=== PATIENT | female | born 1965 | race Caucasian/White ===

== ENCOUNTER 2018-08-11 16:49 | Emergency (ER) | payer OTHER ==
[2018-08-11 17:12] VITALS: BP 175/83
--- NOTE | 2018-08-11 17:44 | PHYS DOC ---
Past History Past Medical History: Diabetes, High Cholesterol, Heart Disease, Hypertension Past Surgical History: Other Alcohol Use: Occasionally Drug Use: None Adult General Chief Complaint Chief Complaint: MECHANICAL FALL HPI HPI 52-year-old female presents after fall yesterday. Patient was actually yesterday when she tripped over a concrete curb. She landed on the concrete. She hit her face, both hands, and both knees. She did not want to come the hospital yesterday. She had a very difficult time sleeping last night. Today her nose, teeth, and right knee hurt the most. She is able to walk. Her front 2 upper teeth are false caps over implants. She denies that they feel loose. She denies losing consciousness. Review of Systems Review of Systems Constitutional: Denies fever or chills [] Eyes: Denies change in visual acuity, redness, or eye pain [] HENT: Denies nasal congestion or sore throat [] Respiratory: Denies cough or shortness of breath [] Cardiovascular: No additional information not addressed in HPI [] GI: Denies abdominal pain, nausea, vomiting, bloody stools or diarrhea [] : Denies dysuria or hematuria [] Musculoskeletal: Facial pain, bilateral hand pain, bilateral knee pain[] Integument: Denies rash or skin lesions [] Neurologic: Denies headache, focal weakness or sensory changes [] Endocrine: Denies polyuria or polydipsia [] All other systems were reviewed and found to be within normal limits, except as documented in this note. Allergies Allergies Allergies Coded Allergies Type Severity Reaction Last Updated Verified iodine Allergy Unknown 08/11/18 Yes metformin Allergy Unknown 08/11/18 Yes Physical Exam Physical Exam Constitutional: Well developed, well nourished, no acute distress, non-toxic appearance. [] HENT: Normocephalic, bilateral external ears normal, oropharynx moist, no oral exudates, nose with abrasions and ecchymosis[] Eyes: PERRLA, EOMI, conjunctiva normal, medial periorbital ecchymosis with minimal swelling[] Neck: Normal range of motion, no tenderness, supple, no stridor. [] Cardiovascular:Heart rate regular rhythm, no murmur [] Lungs & Thorax: Bilateral breath sounds clear to auscultation [] Abdomen: Bowel sounds normal, soft, no tenderness, no masses, no pulsatile masses. [] Skin: Warm, dry, no erythema, no rash. [] Back: No tenderness, no CVA tenderness. [] Extremities: Ecchymosis over bilateral knees, right posterior hand. Tenderness over right knee. Tenderness over right dorsolateral hand[] Neurologic: Alert and oriented X 3, normal motor function, normal sensory function, no focal deficits noted. [] Psychologic: Affect normal, judgement normal, mood normal. [] Current Patient Data Vital Signs Vital Signs Date Time Temp Pulse Resp B/P (MAP) Pulse Ox O2 Delivery O2 Flow Rate FiO2 08/11/18 17:12 98.3 79 20 100 Room Air EKG EKG [] Radiology/Procedures Radiology/Procedures Preliminary read: Head and maxillofacial CT are unremarkable for intracranial bleed or fracture. Plain films of the hand and knee are negative for fracture.[] Impressions: CT HEAD AND MAXILLOFACIAL WO Date: 08/11/2018 5:53 PM Clinical Indication: fell headache,dizziness, facial pain Comparison: None. Technique: 5 mm axial tomographic images were obtained of the head without contrast. These were viewed on brain and bone windows. CT HEAD FINDINGS: The brain parenchyma is normal in attenuation. No intra- or extra-axial mass or fluid collection. No acute hemorrhage. The ventricles are normal in size, shape, and morphology. The cai-white matter junction is normal. The basilar cisterns are patent. The paranasal sinuses are clear. The orbits are normal. The globes are intact. The mastoid air cells are clear. No aggressive osseous lesion or fracture. CT HEAD IMPRESSION: No acute intracranial process. CT MAXILLOFACIAL WITHOUT CONTRAST History: fell headache,dizziness, facial pain Technique: Axial helical images of the face were obtained without contrast. Axial and coronal reconstruction was performed. Findings: There is no acute facial bone fracture. The paranasal sinuses are clear. The orbits are normal. The globes are intact. The nasal septum is mostly midline. The ostiomeatal complexes are narrow but patent. CT FACE IMPRESSION: No acute facial bone fracture. PQRS Compliance Statement: One or more of the following individualized dose reduction techniques were utilized for this examination: 1. Automated exposure control 2. Adjustment of the mA and/or kV according to patient size 3. Use of iterative reconstruction technique Electronically signed by: Stephen Ann MD (08/11/2018 6:34 PM) [facility] [place] DICTATED AND SIGNED BY: STEPHEN ANN MD DATE: 08/11/181826 CC: BEN WARD DO; CHAY VILLALPANDO MD ~ Course & Med Decision Making Course & Med Decision Making Pertinent Labs and Imaging studies reviewed. (See chart for details) The patient's CT scan and x-rays are negative for fracture. She does has multiple contusions. We'll discharge her with [place] 5/325 for pain. She is stable for discharge at this time. [] Dragon Disclaimer Dragon Disclaimer This electronic medical record was generated, in whole or in part, using a voice recognition dictation system. Departure Departure: Referrals: CHAY VILLALPANDO MD (PCP) Scripts Hydrocodone Bit/Acetaminophen (NORCO 5-325 TABLET) 1 Each Tablet 1 TAB PO PRN Q6HRS PRN for PAIN, #10 TAB 0 Refills Prov: BEN WARD DO 08/11/18 BEN WARD DO Aug 11, 2018 17:44
--- NOTE | 2018-08-11 18:37 | RAD ---
CT HEAD AND MAXILLOFACIAL WO Date: 08/11/2018 5:53 PM Clinical Indication: fell headache,dizziness, facial pain Comparison: None. Technique: 5 mm axial tomographic images were obtained of the head without contrast. These were viewed on brain and bone windows. CT HEAD FINDINGS: The brain parenchyma is normal in attenuation. No intra- or extra-axial mass or fluid collection. No acute hemorrhage. The ventricles are normal in size, shape, and morphology. The cai-white matter junction is normal. The basilar cisterns are patent. The paranasal sinuses are clear. The orbits are normal. The globes are intact. The mastoid air cells are clear. No aggressive osseous lesion or fracture. CT HEAD IMPRESSION: No acute intracranial process. CT MAXILLOFACIAL WITHOUT CONTRAST History: fell headache,dizziness, facial pain Technique: Axial helical images of the face were obtained without contrast. Axial and coronal reconstruction was performed. Findings: There is no acute facial bone fracture. The paranasal sinuses are clear. The orbits are normal. The globes are intact. The nasal septum is mostly midline. The ostiomeatal complexes are narrow but patent. CT FACE IMPRESSION: No acute facial bone fracture. RS Compliance Statement: One or more of the following individualized dose reduction techniques were utilized for this examination: 1. Automated exposure control 2. Adjustment of the mA and/or kV according to patient size 3. Use of iterative reconstruction technique Electronically signed by: Stephen Bains MD (08/11/2018 6:34 PM) [facility]
[2018-08-11] MEDS ORDERED: HYDR-3165 PO (18:39)
[2018-08-11] MEDS ORDERED: HYDROcodone/APAP 5/325MG 1 TAB TABLET PO ONE (19:00)
--- NOTE | 2018-08-12 05:11 | RAD ---
4 view right knee radiographs 08/11/2018 CLINICAL HISTORY: Fall with right knee pain and bruising and swelling. AP, lateral, oblique and sunrise digital radiographs of the right knee were obtained. No fracture or dislocation of the right knee is seen. There is no radiographic evidence of a joint effusion. IMPRESSION: No fracture or dislocation of the right knee is seen. Electronically signed by: Arnel Ariza MD (08/12/2018 5:07 AM) [facility]
--- NOTE | 2018-08-12 08:06 | RAD ---
3 views right hand 08/11/2018 CLINICAL INDICATION: Fall with right hand pain. COMPARISON: None. FINDINGS: No acute fracture or traumatic malalignment. Joint spaces are maintained. Visualized soft tissues unremarkable. IMPRESSION: No acute osseous abnormality. Electronically signed by: Chadwick Rocha MD (08/12/2018 8:02 AM) [facility]
== END 2018-08-11 18:40 | disposition home or self-care (01) ==
LOC: ER 16:49
DX: S05.12XA Contusion of eyeball and orbital tissues, left eye, initial encounter (principal); S05.11XA Contusion of eyeball and orbital tissues, right eye, initial encounter; S80.02XA Contusion of left knee, initial encounter; S80.01XA Contusion of right knee, initial encounter; S60.221A Contusion of right hand, initial encounter; E11.9 Type 2 diabetes mellitus without complications; E78.00 Pure hypercholesterolemia, unspecified; I11.9 Hypertensive heart disease without heart failure; Z91.041 Radiographic dye allergy status; Z88.8 Allergy status to other drugs, medicaments and biological substances; W01.0XXA Fall on same level from slipping, tripping and stumbling without subsequent striking against object, initial encounter; Y93.89 Activity, other specified; Y92.480 Sidewalk as the place of occurrence of the external cause; Y99.8 Other external cause status
CPT/HCPCS: 70450; 70486; 73130; 73564; 99284

== ENCOUNTER → 2021-06-25 | Outpatient (CLI) | payer BC ==
[~2021-06-25] MED LIST: HYDR-3165 PO
[2021-06-25 11:27] LABS: BASO # 0.1 x10^3/uL (0.0-0.2); BASO % 1 % (0-3); EOS # 0.1 x10^3/uL (0.0-0.7); EOS % 1 % (0-3); HEMATOCRIT 50.1 % (36.0-47.0); HEMOGLOBIN 16.9 g/dL (12.0-15.5); LYMPH # 2.5 x10^3/uL (1.0-4.8); LYMPH % 25 % (24-48); MEAN CORPUSCULAR HEMOGLOBIN 31 pg (25-35); MEAN CORPUSCULAR HGB CONC 34 g/dL (31-37); MEAN CORPUSCULAR VOLUME 91 fL (79-100); MONO # 0.5 x10^3/uL (0.0-1.1); MONO % 5 % (0-9); NEUT # 6.6 x10^3uL (1.8-7.7); NEUT % 68 % (31-73); PLATELET COUNT 240 x10^3/uL (140-400); WHITE BLOOD COUNT 9.7 x10^3/uL (4.0-11.0)
[2021-06-25 11:46] LABS: ALBUMIN 3.7 g/dL (3.4-5.0); CALCIUM 9.3 mg/dL (8.5-10.1); CREATININE 0.6 mg/dL (0.6-1.0); POTASSIUM 4.3 mmol/L (3.5-5.1); TOTAL BILIRUBIN 0.5 mg/dL (0.2-1.0); TOTAL PROTEIN 7.4 g/dL (6.4-8.2)
[2021-06-25 23:13] LABS: HEMOGLOBIN A1C 11.3 % (4.8-5.6)
== END ==
LOC: LAB 10:59
PROVIDERS: ATTEND Internal Medicine Cardiovascular Disease
DX: I25.10 Atherosclerotic heart disease of native coronary artery without angina pectoris (principal)
CPT/HCPCS: 36415; 80053; 80061; 83036; 85025

== ENCOUNTER → 2021-08-03 | Outpatient (CLI) | payer BC, OTHER ==
[~2021-08-03] MED LIST changes: +REGADENOSON 0.4 MG/5 ML DISP.SYRIN. IV ONE
--- NOTE | 2021-08-03 19:30 | RAD ---
MR#: [id number] Date of Study: 08/03/2021 Ordering Physician: HARSHA ROWLEY, Referring Physician: RAQUEL TANNER Tech: RT Geovanna (R) (N) APPROVED REPORT Test Type: Pharmacological Stress Nurse/Tech: RT Geovanna (R) (N)/ Shahzad Test Indications: CAD Cardiac History: Stent 2018,, Hypertension Medications: See EHR Resting Heart Rate: 72 bpm Resting Blood Pressure: 188/71mmHg Pharm. Details Pharmacologic stress testing was performed using 0.4mg per 5ml of regadenoson given intravenously ove r 7-10 seconds. Stress Symptoms Dyspnea ,headache POST EXERCISE Reason for Termination: Infusion complete Max HR: 97 bpm Max Blood Pressure: 205/84mmHg Blood Pressure response to exercise: Normal blood pressure response during stress. Heart Rate response to exercise: Normal Chest Pain: No. Arrhythmia: No. ST Change: No. INTERPRETATION Stress EKG Conclusion: No evidence of stress induced EKG changes. Imaging Protocol IMAGE PROTOCOL: Rest Tc-99m/stress Tc-99m 1 day Rest: Stress: Viability: Radiopharm.Tc99m OleoismaaKo73y Sestamibi Hkzt61nBd 32mCi Duration 15min. 15min. Img Date 08/03/2021 08/03/2021 Inj-Img Germ25job. 60min. Rest Admin Site:IV - Right HandAdministrator: RT Geovanna (R)(N) Stress Admin Site: IV - Right HandAdministrator: RT Geovanna (R)(N) STRESS DATA End Diast. Vol.97.0mlAv. Heart Rate73.0bpm End Syst. Vol.29.0mlCO Index BSA0.0L/min Myocardial Dypc275.0gEject. Qgwrkjag39.0% Stress Rates Pk. Fill Rate2.85EDV/secLVtime Pk. Fill 204.18msec Pk. Empty Rate3.24ESV/secLVtime Pk. Omuzq436.79msec 09/20 Pk. Fill1.48EDV/sec Stress Scores Regional WT1.00Summed WT14.00 Regional WM0.00Summed WM3.00 The rest and stress images show normal perfusion, normal contraction and thickening. LV Perf. Quant 17 Seg. SSS0.00 17 Seg. SRS0.00 17 Seg. SDS0.00 Stress Defect Extent (% LAD)0.00Rest Defect Extent (% LAD)0.00Rev. Defect Extent (% LAD)0.00 Stress Defect Extent (% LCX) 0.00Rest Defect Extent (% LCX)0.00Rev. Defect Extent (% LCX)0.00 Stress Defect Extent (% RCA)0.00Rest Defect Extent (% RCA)0.00Rev. Defect Extent (% RCA)0.00 Stress Defect Extent (% PINA)0.00Rest Defect Extent (% PINA)0.00Rev. Defect Extent (% PINA)0.00 Other Information Quality:Average Risk Assessment: Low Risk Conclusion 1. No evidence of EKG changes with stress testing. 2. Normal perfusion at stress/rest. 3. Low risk study. 4. EF > 60%. Signed by : Harsha Rowley, Electronically Approved : 08/03/2021 19:29:51
--- NOTE | 2021-08-03 20:04 | CARD ---
MR#: [id number] Date of Study: 08/03/2021 Ordering Physician: HARSHA WHITESIDE, Referring Physician: HARSHA WHITESIDE, Tech: Shae Campbell, [facility] APPROVED REPORT EXAM: Two-dimensional and M-mode echocardiogram with Doppler and color Doppler. Other Information Quality : AverageHR: 63bpm Technically limited study due to body habitus. INDICATION Cardiac Disease: CAD RISK FACTORS Hypertension Hyperlipidemia Diabetes Smoking 2D DIMENSIONS RVDd3.3 (2.9-3.5cm)Left Atrium(2D)3.5 (1.6-4.0cm) IVSd1.0 (0.7-1.1cm)Aortic Root(2D)2.7 (2.0-3.7cm) LVDd4.6 (3.9-5.9cm)LVOT Diameter2.0 (1.8-2.4cm) PWd1.2 (0.7-1.1cm)LVDs3.6 (2.5-4.0cm) FS (%) 22.3 %SV43.5 ml LVEF(%)55.1 (>50%) Aortic Valve AoV Peak Roverto.116.3cm/sAoV VTI31.1cm AO Peak GR.5.4mmHgLVOT Peak Roverto.105.5cm/s LVOT VTI 26.55cmAO Mean GR.3mmHg GARTH (VMAX)2.00gz2UBP (VTI)2.75cm2 Mitral Valve MV E Kbrceriv51.0cm/sMV E Peak Gr.2mmHg MV DECEL [id number] A Odmpmeap49.1cm/s MV E Mean Gr.1mmHgE/A Ratio1.1 Pulmonary Valve PV Peak Okrybopa83.6cm/sPV Peak Grad.3mmHg Tricuspid Valve RAP [id number] Pulmonary Vein S1 Bofvmswm59.3cm/sD2 Upmcipue68.4cm/s LEFT VENTRICLE The left ventricle is normal size. There is borderline to mild concentric left ventricular hypertroph y. The left ventricular systolic function is normal and the ejection fraction is within normal range. The Ejection Fraction is 55-60%. There is normal LV segmental wall motion. Tissue Doppler imaging re veals moderate left ventricular diastolic dysfunction. RIGHT VENTRICLE The right ventricle is normal size. There is normal right ventricular wall thickness. The right ventr icular systolic function is normal. ATRIA The left atrium size is normal. The right atrium size is normal. The interatrial septum is intact wit h no evidence for an atrial septal defect or patent foramen ovale as noted on 2-D or Doppler imaging. AORTIC VALVE The aortic valve is normal in structure and function. Doppler and Color Flow revealed no significant aortic regurgitation. There is no significant aortic valvular stenosis. Calculated aortic valve area is 3.3 cm2 with maximum pressure gradient of 6 mmHg and mean pressure gradient of 3 mmHg. MITRAL VALVE The mitral valve is normal in structure and function. There is no evidence of mitral valve prolapse. There is no mitral valve stenosis. Doppler and Color-flow revealed trace mitral regurgitation. TRICUSPID VALVE The tricuspid valve is normal in structure and function. Doppler and Color Flow revealed no tricuspid valve regurgitation noted. There is no tricuspid valve stenosis. PULMONIC VALVE The pulmonic valve is not well visualized. Doppler and Color Flow revealed trace pulmonic valvular re gurgitation. There is no pulmonic valvular stenosis. GREAT VESSELS The aortic root is normal in size. The IVC is normal in size and collapses >50% with inspiration. PERICARDIAL EFFUSION There is no evidence of significant pericardial effusion. Critical Notification Critical Value: No <Conclusion> The left ventricular systolic function is normal and the ejection fraction is within normal range. Th e Ejection Fraction is 55-60%. There is normal LV segmental wall motion. Signed by : Harsha Whiteside, Electronically Approved : 08/03/2021 20:04:15
== END ==
LOC: NM 08:20
PROVIDERS: ATTEND Internal Medicine Cardiovascular Disease
DX: I11.9 Hypertensive heart disease without heart failure (principal); I25.10 Atherosclerotic heart disease of native coronary artery without angina pectoris
CPT/HCPCS: 78452; 93017; 93306; A9500; J2785